=== PATIENT | female | born 1990 | race Caucasian/White ===

== ENCOUNTER → 2022-12-30 | Outpatient (CLI) | payer OTHER ==
[~2022-12-30] MED LIST: MOTRIN600 MG PO; VIBRA-TAB100 MG PO
[2022-12-30 11:16] LABS: BASO # 0.1 10*3/uL (0.0-0.1); BASO % 0.6 % (0.0-1.0); EOS # 0.1 10*3/uL (0.0-0.4); EOS % 1.6 % (1.0-4.0); HEMATOCRIT 41.3 % (37.0-47.0); LYMPH # 2.4 10*3/uL (1.3-4.4); LYMPH % 27.2 % (27.0-41.0); MEAN CELL VOLUME 92.8 fl (81.0-99.0); MEAN CORPUSCULAR HGB 31.5 pg (27.0-31.0); MEAN CORPUSCULAR HGB CONC 33.9 g/dl (33.0-37.0); MEAN PLATELET VOLUME 9.6 fl (9.6-12.3); MONO # 0.5 10*3/uL (0.1-1.0); MONO % 5.6 % (3.0-9.0); NEUT # 5.7 10*3/uL (2.3-7.9); NEUT % 64.8 % (47.0-73.0); PLATELET COUNT AUTOMATED 259 10*3/uL (130-400); RED BLOOD COUNT 4.45 10*6/uL (4.10-5.10); RED CELL DISTRI WIDTH 13.8 % (0-14.5); WHITE BLOOD COUNT 8.8 10*3/uL (4.8-10.8)
[2022-12-30 11:50] LABS: ALKALINE PHOSPHATASE 74 U/L (46-116); BUN 9 mg/dl (9-23); CHLORIDE 106 mmol/L (98-107); SGPT/ALT 12 U/L (10-49)
== END | disposition home or self-care (01) ==
LOC: LAB 01:15
PROVIDERS: ATTEND Nurse Practitioner Family
DX: Z00.00 Encounter for general adult medical examination without abnormal findings (principal); H61.23 Impacted cerumen, bilateral; F41.9 Anxiety disorder, unspecified; Z86.59 Personal history of other mental and behavioral disorders

== ENCOUNTER → 2023-04-25 | Outpatient (CLI) | payer BC | END | disposition home or self-care (01) | LOC: RAD 08:42 | PROVIDERS: ATTEND Nurse Practitioner Family | DX: M47.23 Other spondylosis with radiculopathy, cervicothoracic region (principal); M25.511 Pain in right shoulder; R25.2 Cramp and spasm ==

== ENCOUNTER → 2023-05-10 | Outpatient (CLI) | payer BC | END | disposition home or self-care (01) | LOC: CT 08:20 | PROVIDERS: ATTEND Nurse Practitioner Family | DX: M54.12 Radiculopathy, cervical region (principal) ==

== ENCOUNTER 2024-05-31 23:12 | Emergency (ER) | payer BC ==
[~2024-05-31] VITALS: Ht 165.1 cm; Wt 74.8 kg
[2024-05-31] MEDS ORDERED: ATARAX,VISTARIL10 MG PO (23:25)
[2024-05-31] MEDS ORDERED: ARIPIPRAZOLE5 MG PO (23:25)
[2024-05-31] MEDS ORDERED: SODIUM CHLORIDE 0.9% 1,000 ML IV ONE (23:30)
[2024-05-31] MEDS ORDERED: Ondansetron Hydrochloride 4 MG/2 ML VIAL IV ONE (23:30)
[2024-06-01] MEDS ORDERED: Ondansetron4 MG PO (01:03)
== END 2024-06-01 01:15 | disposition home or self-care (01) ==
LOC: ED 23:12
DX: K52.9 Noninfective gastroenteritis and colitis, unspecified (principal); Z91.040 Latex allergy status

== ENCOUNTER → 2024-07-31 | Outpatient (CLI) | payer BC ==
[~2024-07-31] MED LIST changes: +ARIPIPRAZOLE5 MG PO; +ATARAX,VISTARIL10 MG PO; +Ondansetron4 MG PO
[2024-07-31 09:03] LABS: BASO # 0.1 10*3/uL (0.0-0.1); EOS # 0.2 10*3/uL (0.0-0.4); EOS % 2.5 % (1.0-4.0); HEMATOCRIT 41.3 % (37.0-47.0); MEAN CELL VOLUME 94.7 fl (81.0-99.0); MEAN CORPUSCULAR HGB 31.4 pg (27.0-31.0); MEAN CORPUSCULAR HGB CONC 33.2 g/dl (33.0-37.0); MEAN PLATELET VOLUME 9.6 fl (9.6-12.3); MONO # 0.6 10*3/uL (0.1-1.0); MONO % 7.5 % (3.0-9.0); NEUT # 4.2 10*3/uL (2.3-7.9); NEUT % 52.6 % (47.0-73.0); PLATELET COUNT AUTOMATED 316 10*3/uL (130-400); RED BLOOD COUNT 4.36 10*6/uL (4.10-5.10); RED CELL DISTRI WIDTH 12.8 % (0-14.5)
[2024-07-31 09:33] LABS: ALKALINE PHOSPHATASE 94 U/L (46-116); BUN 11 mg/dl (9-23); CHLORIDE 104 mmol/L (98-107); CHOLESTEROL 218 mg/dL (<200); LDL CHOLESTEROL 140 mg/dL (9-159); POTASSIUM 3.8 mmol/L (3.4-5.1); SGPT/ALT 38 U/L (5-49); TOTAL PROTEIN 7.2 gm/dL (6.0-8.0); TRIGLYCERIDES 122 mg/dl (<150)
== END | disposition home or self-care (01) ==
LOC: LAB 08:18
PROVIDERS: ATTEND Nurse Practitioner Family
DX: Z13.1 Encounter for screening for diabetes mellitus (principal); F41.9 Anxiety disorder, unspecified; F31.9 Bipolar disorder, unspecified

== ENCOUNTER 2025-03-18 16:21 | Emergency (ER) | payer BC ==
[~2025-03-18] VITALS: Wt 86.2 kg
[2025-03-18] MEDS ORDERED: Amoxicillin/Clavulanate Pota 875 MG TAB PO ONE (16:40)
[2025-03-18] MEDS ORDERED: CIPROFLOXACIN H10 ML OT (16:41)
[2025-03-18] MEDS ORDERED: AMOX-CLAV 875-1 EACH PO (16:41)
== END 2025-03-18 16:44 | disposition home or self-care (01) ==
LOC: ED 16:21
DX: H66.91 Otitis media, unspecified, right ear (principal)